=== PATIENT | male | born 1975 | race Caucasian/White ===

== ENCOUNTER → 2019-04-08 | Outpatient (CLI) | payer OTHER ==
--- NOTE | 2019-04-08 10:02 | Diagnostic Imaging Report ---
CLINICAL INDICATION: Patient kicked toe on exercise machine last night. Patient has pain in the fifth toe with bruising and swelling. EXAM: X-ray of the right foot, 3 views. COMPARISON: None. FINDINGS: There is no acute fracture or dislocation. There is minimal calcaneal spurring at the Achilles attachment seen on the oblique view. Chronic calcification is seen adjacent to the cuboid. There is no significant bone or joint abnormality. IMPRESSION: There is no acute fracture or dislocation. Dictated by: Dictated on workstation # [id number]
== END ==
LOC: RAD 09:34
PROVIDERS: ATTEND Nurse Practitioner Family
DX: M79.674 Pain in right toe(s) (principal); W22.8XXA Striking against or struck by other objects, initial encounter
CPT/HCPCS: 73630

== ENCOUNTER 2021-08-18 05:34 | Outpatient (CLI) | payer OTHER ==
[~2021-08-18] VITALS: Ht 185.4 cm; Wt 89.4 kg
[2021-08-18] MEDS ORDERED: SUMA100T3 PO (08:32)
[2021-08-18] MEDS ORDERED: MULT-1102 PO (08:32)
[2021-08-18] MEDS ORDERED: CHOL-34 PO (08:32)
[2021-08-18] MEDS ORDERED: GABA300C PO ×2 (08:32)
[2021-08-18] MEDS ORDERED: MELA1TAB27 PO (08:32)
== END 2021-08-18 08:34 | disposition home or self-care (01) ==
LOC: PREOP 05:34
PROVIDERS: ATTEND Surgery
DX: Z01.818 Encounter for other preprocedural examination (principal)

== ENCOUNTER 2021-08-29 06:58 | Day surgery (SDC) | payer OTHER ==
[~2021-08-29] VITALS: Ht 185.5 cm; Wt 89.4 kg
[~2021-08-29 06:58] MED LIST: CHOL-34 PO; GABA300C PO; MELA1TAB27 PO; MULT-1102 PO; SUMA100T3 PO
[2021-08-29] MEDS ORDERED: LACTATED RINGERS 1,000 ML IV STA (07:00)
[2021-08-29] MEDS ORDERED: MIDAZOLAM 2 MG/2 ML (VERSED) VIAL ONE (07:13)
[2021-08-29] MEDS ORDERED: PROPOFOL INJECTION 50 ML IV ONE (07:13)
[2021-08-29 07:16] VITALS: BP 117/85
--- NOTE | 2021-08-29 07:34 | Progress Note-Pre Operative ---
Pre-Operative Progress Note H&P Reviewed The H&P was reviewed, patient examined and no changes noted. Date Seen by Provider: Aug 29, 2021 Time Seen by Provider: 07:33 Date H&P Reviewed: Aug 29, 2021 Time H&P Reviewed: 07:33 Pre-Operative Diagnosis: screening colonoscopy NEVA DURAN DO Aug 29, 2021 07:34
[2021-08-29 08:00] VITALS: BP 88/58
--- NOTE | 2021-08-29 08:00 | Discharge Inst-Simple/Standard ---
Discharge Inst-Standard Patient Instructions/Follow Up Plan of Care/Instructions/FU: 2 weeks lloyd Activity as Tolerated: Yes Discharge Diet: Regular Diet NEVA DURAN DO Aug 29, 2021 08:00
[2021-08-29 08:05] VITALS: BP 90/56
[2021-08-29 08:10] VITALS: BP 90/58
[2021-08-29 08:15] VITALS: BP 88/59
[2021-08-29 08:20] VITALS: BP 94/66
--- NOTE | 2021-08-29 08:47 | OPERATIVE REPORT ---
DATE OF SERVICE: 08/29/2021 PREOPERATIVE DIAGNOSIS: Screening colonoscopy. POSTOPERATIVE DIAGNOSIS: Colon polyps x2. PROCEDURE: Colonoscopy with cold biopsy polypectomy x2. SURGEON: Neva Abad DO ANESTHESIA: Per SAFETY AND SKILL BASED PAY MANAGER. ESTIMATED BLOOD LOSS: None. COMPLICATIONS: None. INDICATIONS: The patient is a 46-year-old male needing screening colonoscopy. He understands risks and benefits of procedure and wishes to proceed. Consent was signed in the chart. DESCRIPTION OF PROCEDURE: The patient was taken to the endoscopy suite, placed in left lateral recumbent position. Timeout was performed. Scope was inserted into the rectum, advanced all the way to cecum with minimal difficulty. Prep was adequate. Scope was slowly retracted back. A small polyp was in the cecum, which a cold biopsy polypectomy was performed. Scope was then continuously retracted back. No polyps, masses or ulcerations within the ascending, transverse and descending colon and in sigmoid very small polyp was present, which a cold biopsy polypectomy was performed. Scope was continuously retracted back into the rectum, where it was also retroflexed noting no other pathology. Scope was returned to its normal position, slowly withdrawn until completely removed. The patient tolerated procedure well without any complications, taken to recovery room in stable condition. RECOMMENDATIONS: The patient will need repeat colonoscopy in 5 years. Any issues before that be seen at that time for reevaluation. The patient will follow up in 2 weeks to discuss pathology results. Job ID: [id number] DocumentID: [id number] Dictated Date: 08/29/2021 08:03:04 Land Reclamation Specialist Date: 08/29/2021 08:47:01 Dictated By: NEVA ABAD DO
--- NOTE | 2021-08-29 13:24 | Anesthesia-General Post-Op ---
MAC Patient Condition Mental Status/LOC: Same as Preop Cardiovascular: Satisfactory Nausea/Vomiting: Absent Respiratory: Satisfactory Pain: Controlled Complications: Absent Post Op Complications Complications None Follow Up Care/Instructions Patient Instructions None needed. Anesthesiology Discharge Order Discharge Order Patient is doing well, no complaints, stable vital signs, no apparent adverse anesthesia problems. No complications reported per nursing. MADELYN TAMAYO CRNA Aug 29, 2021 13:24
== END 2021-08-29 08:48 | disposition home or self-care (01) ==
LOC: ENDO 06:58
PROVIDERS: ATTEND Surgery
DX: Z12.11 Encounter for screening for malignant neoplasm of colon (principal); D12.0 Benign neoplasm of cecum; K63.5 Polyp of colon
CPT/HCPCS: 88305